=== PATIENT | female | born 1965 | race Caucasian/White ===

== ENCOUNTER → 2021-01-18 14:47 | Outpatient (CLI) | payer BC, SELFPAY ==
--- NOTE | ~2021-01-18 | MM_ITS ---
EXAMINATION: MM scrn arabella implant BI w leisa HISTORY: Screening mammogram TECHNIQUE: Craniocaudal and mediolateral oblique 3-D tomosynthesis images with implant displacement a nd synthetic 2-D images were generated. Craniocaudal and mediolateral oblique views of the breasts wi thout implant displacement were obtained using full field digital mammography. CAD analysis was submi tted and interpreted. COMPARISON: Comparison to multiple prior studies sequentially, with oldest reviewed study dated 02/03. BREAST PARENCHYMAL COMPOSITION: The breasts are heterogenously dense, which may obscure small masses. FINDINGS: There are bilateral silicone subpectoral implants. There is no evidence of suspicious mass, calcification, or architectural distortion to suggest malignancy in either breast. There has been no suspicious interval change. IMPRESSION: 1. No mammographic evidence of malignancy. 2. Recommend routine screening mammography in one year. BI-RADS Category 1: Negative Reviewed, dictated and finalized at location A.
== END ==
PROVIDERS: PCP Family Medicine; Visit Provider Family Medicine
DX: Z12.31 Encounter for screening mammogram for malignant neoplasm of breast (principal)
CPT/HCPCS: 77063; 77067

== ENCOUNTER 2021-01-19 14:30 | Outpatient (CLI) | payer BC, SELFPAY | END 2021-01-19 14:31 | disposition home or self-care (01) | LOC: ANHAUDIO 14:32 | PROVIDERS: PCP Family Medicine; Referring Provider Otolaryngology; Visit Provider Otolaryngology | DX: H93.11 Tinnitus, right ear (principal); H90.3 Sensorineural hearing loss, bilateral | CPT/HCPCS: 92557; 92567 ==

== ENCOUNTER 2021-03-15 01:37 | Day surgery (SDC) | payer BC, SELFPAY ==
[2021-03-03 14:44] VITALS: BMI 20.6
--- NOTE | 2021-03-14 12:05 | WPDANESEPPF ---
Anes - Initial Pre Proc Eval Procedure: Operation Date: 03/15/21 08:30 Proposed Procedures p Screening Colonoscopy - Jaime Medina MD Date/Time: 03/14/21 12:05 Surgeon: Jaime Medina MD Pre Op Diagnosis: neoplasm screening Patient Data Age: 56 Gender: F Height: 1.73 m Weight: 61.5 kg Allergies Allergy/AdvReac Type Severity Reaction Status Date / Time No Known Allergies Allergy Verified 03/03/21 15:27 Home Medications Medication Instructions Recorded Confirmed Type No Home Medications 03/03/21 03/15/21 History Patient hx anesthesia problems: none Family hx anesthesia problems: none PMFSH Past Medical History Medical History Closed fracture of heel bone 2014 Hx of abnormal cervical Pap smear Tobacco abuse Surgical History Surgical History History of augmentation mammoplasty 2013 Hx of section Family History Family History Father Heart disease Mother Heart disease Sibling Heart disease Other Family history of premature coronary heart disease Social History Social History Social History: Smoking packs per day: 1 Smoking cigarettes per day: 20.0 Years smoked: 37 Smoking pack-years: 37.00 Smoking status: Current every day smoker Tobacco type: cigarettes Second hand tobacco smoke exposure: Yes Alcohol intake: current Drinks per week: 2 Alcohol use details: Occasionally Substance use: never Substance use type: does not use Living arrangements: with family Gender identity (if verbalized by the patient): Female Sexual Orientation (if Verbalized by the Patient): Straight or Heterosexual Spiritual care concerns: No Anes - Eval Final PreProcedure Day of Procedure 03/14/21 12:05 Patient weight: normal Heart: regular rate and rhythm Lungs: clear to auscultation and normal air movement Airway: Mallampati scale class II Neurological: alert and oriented Last oral intake: >/= 8 hours ASA classification: III Emergent: no Anesthetic plan: proceed Anesthesia type and monitoring: general GIVS and standard monitoring Informed Consent: The patient's anesthetic plan and its attendant risks and benefits were discussed with the patient/family/POA. Questions were solicited and answers provided to the satisfaction of the patient/family/POA.
[2021-03-15 07:13] VITALS: BP 131/87; PULSE 74; RESP 18; TEMP 36.1; O2SAT 100
[2021-03-15] MEDS: LACTATED RINGERS 1,000 ML 150 ML IV CONT (07:32)
--- NOTE | 2021-03-15 08:28 | WPDGICN ---
Assessment and Plan Assessment and plan (1) Colon cancer screening: Code(s): Z12.11 - Encounter for screening for malignant neoplasm of colon Status: Acute Assessment and Plan: Patient presents for screening colonoscopy. This report follows separately. GI Consult Note Consult date/time: 03/15/21 08:28 HPI: Kathryn Mcclure is a 56 year old female Presents for screening colonoscopy. Patient's current weight appetite bowel movements are normal. Patient denies abdominal pain. Patient has had no bleeding. Family history is Noncontributory. Patient presents today for screening colonoscopy. Review of Systems Review of Systems: All systems reviewed & are unremarkable except as noted in HPI and below PMFSH Past Medical History Medical History Closed fracture of heel bone 2014 Hx of abnormal cervical Pap smear Tobacco abuse Surgical History Surgical History History of augmentation mammoplasty 2013 Hx of section Family History Family History Father Heart disease Mother Heart disease Sibling Heart disease Other Family history of premature coronary heart disease Social History Social History Social History: Smoking packs per day: 1 Smoking cigarettes per day: 20.0 Years smoked: 37 Smoking pack-years: 37.00 Smoking status: Current every day smoker Tobacco type: cigarettes Second hand tobacco smoke exposure: Yes Alcohol intake: current Drinks per week: 2 Alcohol use details: Occasionally Substance use: never Substance use type: does not use Living arrangements: with family Gender identity (if verbalized by the patient): Female Sexual Orientation (if Verbalized by the Patient): Straight or Heterosexual Spiritual care concerns: No Meds Home Medications and Allergies Home Medications Medication Instructions Recorded Confirmed Type No Home Medications 03/03/21 03/15/21 History Allergies Allergy/AdvReac Type Severity Reaction Status Date / Time No Known Allergies Allergy Verified 03/03/21 15:27 Vital Signs Vital Signs - 24 hr 03/15/21 07:13 Temperature 96.9 F L Pulse Rate 74 Respiratory Rate 18 Blood Pressure 131/87 Pulse Oximetry 100 Exam Narrative: Physical exam reveals patient to be alert. Vital signs are stable. HEENT exam is unremarkable. Patient is anicteric. Lungs are clear to auscultation and percussion. Heart is without murmur or extra sounds. Abdominal exam bowel sounds are present soft nontender with no organomegaly. Digital external rectal exam is normal.
[2021-03-15 09:13] VITALS: BP 119/81; PULSE 77; RESP 25; O2SAT 100
[2021-03-15 09:23] VITALS: BP 140/84; PULSE 68; RESP 21; O2SAT 100
[2021-03-15 09:33] VITALS: BP 137/84; PULSE 66; RESP 13; O2SAT 100
== END 2021-03-15 09:42 | disposition home or self-care (01) ==
PROVIDERS: PCP Family Medicine; Visit Provider Internal Medicine Gastroenterology
PROC: 0DJD8ZZ Inspection of Lower Intestinal Tract, Via Natural or Artificial Opening Endoscopic (ICD-10-PCS; CPT 45378; principal; 2021-03-15 08:30)
DX: Z12.11 Encounter for screening for malignant neoplasm of colon (principal); K63.5 Polyp of colon; D12.5 Benign neoplasm of sigmoid colon; F17.210 Nicotine dependence, cigarettes, uncomplicated
CPT/HCPCS: 45385; 88305; J2001; J2704; J7120

== ENCOUNTER → 2022-10-05 10:31 | Outpatient (CLI) | payer BC, SELFPAY ==
--- NOTE | ~2022-10-05 | CT_ITS ---
EXAMINATION: CT lung screening DATE: 10/05/2022 11:12 INDICATION: smoker TECHNIQUE: Computed tomography (CT) of the chest was performed without intravenous contrast. Addition al 3D reconstructions utilizing coronal maximum intensity projection (MIP) were performed. Automated exposure control and iterative reconstruction technique were employed. The dose-length product was 87 .52 mGy-cm. COMPARISON: None FINDINGS: Mild emphysema with mild biapical pleural-parenchymal scarring. No other suspicious pulmonary nodules , pulmonary edema, pleural effusion or pneumothorax. Heart size is normal. No pericardial effusion. T horacic aorta is normal in caliber. No pathologically enlarged thoracic lymphadenopathy. Mild to mode rate thoracic spondylosis. Bilateral breast implants. IMPRESSION: 1. Lung-RADS category 1: Negative. Continue annual screening with noncontrast low-dose chest CT in 12 months. Reviewed, dictated and finalized at location L. IMPRESSION: 1. Lung-RADS category 1: Negative. Continue annual screening with noncontrast l ow-dose chest CT in 12 months.
--- NOTE | ~2022-10-05 | US_ITS ---
Abdominal Sonogram: Real-time sonographic imaging of the abdomen was performed. Clinical History: Abdominal pain Findings: The liver appears normal with no evidence of mass lesion or bile duct dilatation. Main por shanna vein demonstrates normal direction of flow. The spleen is normal in size without evidence of foca l lesion. The gallbladder is well distended, and appears normal with no evidence of gallstone or wal l thickening. The common bile duct measures 3 mm. The visualized pancreas, aorta, and IVC are unrema rkable. The right kidney measures 11.2 cm in length and the left kidney measures 10.6 cm. There is no hydronephrosis or renal calculus. Impression: Unremarkable abdominal ultrasound. Reviewed, dictated and finalized at location . Impression: Unremarkable abdominal ultrasound.
--- NOTE | ~2022-10-05 | MR_ITS ---
MRI of the brain Clinical History: Headache, blindness Technique: Axial and sagittal T1-weighted images were acquired. These were followed by axial T2-weigh muriel, diffusion weighted, gradient, and FLAIR images. Following intravenous administration of 10 cc Mu ltiHance gadolinium, T1-weighted fat-sat imaging was performed in the axial and coronal planes. COMPARISON: 09/29/2012 Findings: No abnormal signal seen in the brain parenchyma. No acute infarct, intracranial hemorrhage, or mass lesion. Ventricles and subarachnoid spaces are unremarkable. Orbits are unremarkable. Paranasal sinuses and m astoid air cells are clear. Major intracranial flow voids appear intact. Sagittal midline structures are intact. No abnormal postcontrast enhancement identified. IMPRESSION: Unremarkable exam. Reviewed, dictated and finalized at location M. IMPRESSION: Unremarkable exam.
== END ==
PROVIDERS: PCP Family Medicine; Visit Provider Nurse Practitioner Gerontology
DX: Z12.2 Encounter for screening for malignant neoplasm of respiratory organs (principal); F17.210 Nicotine dependence, cigarettes, uncomplicated; R51.9 Headache, unspecified; H54.7 Unspecified visual loss; R10.9 Unspecified abdominal pain
CPT/HCPCS: 70553; 71271; 76700; A9577

== ENCOUNTER 2022-10-09 10:02 | Outpatient (CLI) | payer BC, SELFPAY ==
[2022-10-12 15:35] LABS: Vitamin D 1,25 (OH)2 Total 53 pg/mL (18-72); Vitamin D2 1,25 (OH)2 <8 pg/mL; Vitamin D3 1,25 (OH)2 53 pg/mL
== END 2022-10-09 10:03 | disposition home or self-care (01) ==
LOC: ANHLAB 10:04
PROVIDERS: PCP Family Medicine; Visit Provider Nurse Practitioner Gerontology
DX: E67.8 Other specified hyperalimentation (principal)
CPT/HCPCS: 36415; 82652

== ENCOUNTER 2022-10-16 01:09 | Day surgery (SDC) | payer BC, SELFPAY ==
[2022-10-03 14:11] VITALS: BMI 20.1
[2022-10-16 09:41] VITALS: BP 128/77; PULSE 69; RESP 18; TEMP 36.8; O2SAT 100
[2022-10-16] MEDS: LACTATED RINGERS 1,000 ML 150 ML IV CONT (09:48)
--- NOTE | 2022-10-16 10:13 | PM.HPGS ---
History of Present Illness History of Present Illness Consent: Risks, benefits, and alternatives have been discussed and questions answered. Patient agrees to proceed with procedure. Chief complaint: Epigastric pain Narrative: Kathryn Mcclure is a 57 year old female Presents for EGD. Patient reports for the last 25-30 years she has had epigastric pain. This is associated with nausea regurgitation. It occurs perhaps 2-3 weeks every 3 months. She no initially was prescribed omeprazole some years ago but discontinued this and only took it on a p.r.n. basis. Over the last 1 week she has taken this regularly and states this helps alleviate her discomfort. Patient denies any bleeding. She has had no weight loss. Patient referred today for EGD to further evaluate. Patient does have a past medical history of colon polyp removed from the colon in 2020. Follow-up colonoscopy has been advised at 5 year intervals. Review of Systems Review of Systems: Review of systems noncontributory. [facility] Past Medical History Medical History Closed fracture of heel bone 2014 Hx of abnormal cervical Pap smear Tobacco abuse Surgical History Surgical History History of augmentation mammoplasty 2014 Hx of section Family History Family History Father Heart disease Mother Heart disease Sibling Heart disease Other Family history of premature coronary heart disease Social History Social History Social History: Smoking packs per day: 1 Smoking cigarettes per day: 20.0 Years smoked: 37 Smoking pack-years: 37.00 Smoking status: Current every day smoker Tobacco type: cigarettes Second hand tobacco smoke exposure: Yes Alcohol intake: current Drinks per week: 1 Alcohol use details: Occasionally Substance use: never Substance use type: does not use Living arrangements: with family Occupation/Education: unemployed Gender identity (if verbalized by the patient): Female Sexual Orientation (if Verbalized by the Patient): Straight or Heterosexual Spiritual care concerns: No Meds Home Medications and Allergies Home Medications Medication Instructions Recorded Confirmed Type omeprazole 40 mg capsule,delayed 40 mg PO DAILY #90 caps 10/09/22 10/16/22 Rx release Allergies Allergy/AdvReac Type Severity Reaction Status Date / Time No Known Allergies Allergy Verified 10/16/22 09:39 Vital Signs Vital Signs - 24 hr 10/16/22 09:41 Temperature 98.3 F Pulse Rate 69 Respiratory Rate 18 Blood Pressure 128/77 Pulse Oximetry 100 Oxygen Delivery Room Air Exam Narrative: Physical exam reveals patient to be alert. Vital signs stable. HEENT exam is unremarkable. Patient is anicteric. Lungs are clear to auscultation and percussion. Heart is without murmur or extra sounds. Abdomen bowel sounds are present soft nontender with no hepatosplenomegaly. Digital external rectal exam is normal. Assessment and Plan Assessment and plan (1) Midepigastric pain: Code(s): R10.13 - Epigastric pain Status: Acute Assessment and Plan: Patient with intermittent epigastric pain. Patient referred for EGD. Some improvement with omeprazole suggest this may be dyspepsia. Further recommendations will be given after endoscopy. Currently seems prudent to maintain patient on pantoprazole or similar medication given the ongoing discomfort.
--- NOTE | 2022-10-16 10:17 | P.PNAN_ITS ---
Anes - Initial Pre Proc Eval Procedure: Operation Date: 10/16/22 11:00 Proposed Procedures p Esophagogastroduodenoscopy - Jaime Medina MD Date/Time: 10/16/22 10:17 Surgeon: Jaime Medina MD Pre Op Diagnosis: Epigastric pain Patient Data Age: 57 Gender: F Height: 1.73 m Weight: 57.9 kg Last Vital Signs Temp 36.8 C 10/16/22 09:41 Pulse 69 10/16/22 09:41 Resp 18 10/16/22 09:41 BP 128/77 10/16/22 09:41 Pulse Ox 100 10/16/22 09:41 O2 Del Method Room Air 10/16/22 09:41 Allergies Allergy/AdvReac Type Severity Reaction Status Date / Time No Known Allergies Allergy Verified 10/16/22 09:39 Home Medications Medication Instructions Recorded Confirmed Type omeprazole 40 mg capsule,delayed 40 mg PO DAILY #90 caps 10/09/22 10/16/22 Rx release Patient hx anesthesia problems: none Family hx anesthesia problems: none Results Review: All pre-operative results and documents have been reviewed as part of the pre- operative evaluation. [facility] Past Medical History Medical History Closed fracture of heel bone 2014 Hx of abnormal cervical Pap smear Tobacco abuse Surgical History Surgical History History of augmentation mammoplasty 2014 Hx of section Family History Family History Father Heart disease Mother Heart disease Sibling Heart disease Other Family history of premature coronary heart disease Social History Social History Social History: Smoking packs per day: 1 Smoking cigarettes per day: 20.0 Years smoked: 37 Smoking pack-years: 37.00 Smoking status: Current every day smoker Tobacco type: cigarettes Second hand tobacco smoke exposure: Yes Alcohol intake: current Drinks per week: 1 Alcohol use details: Occasionally Substance use: never Substance use type: does not use Living arrangements: with family Occupation/Education: unemployed Gender identity (if verbalized by the patient): Female Sexual Orientation (if Verbalized by the Patient): Straight or Heterosexual Spiritual care concerns: No Anes - Eval Final PreProcedure Day of Procedure 10/16/22 10:17 Patient weight: normal Heart: regular rate and rhythm Lungs: clear to auscultation and normal air movement Airway: Mallampati scale class II Neurological: alert and oriented Last oral intake: >/= 8 hours ASA classification: II Emergent: no Anesthetic plan: proceed Anesthesia type and monitoring: general GIVS and standard monitoring Results Review: All pre-operative results and documents have been reviewed as part of the pre- operative evaluation. Informed Consent: The patient's anesthetic plan and its attendant risks and benefits were discussed with the patient/family/POA. Questions were solicited and answers provided to the satisfaction of the patient/family/POA.
[2022-10-16] MEDS: BENZOCAINE (*SP) 60 ML SPRAY CAN (HURRICAINE) 1 SPRAY MUCOUS MEM (10:49)
[2022-10-16 10:58] VITALS: BP 117/64; PULSE 75; RESP 18; O2SAT 100
[2022-10-16 11:08] VITALS: BP 106/70; PULSE 65; RESP 20; O2SAT 100
[2022-10-16 11:18] VITALS: BP 96/59; PULSE 66; RESP 20; O2SAT 100
--- NOTE | 2022-10-17 07:58 | SUR.PHASEII ---
At 11:04am on October 16, 2022 Dr. Medina was notified and aware of the positive H.pylori, see orders.
== END 2022-10-16 11:40 | disposition home or self-care (01) ==
PROVIDERS: PCP Family Medicine; Visit Provider Internal Medicine Gastroenterology
PROC: 0DJ08ZZ Inspection of Upper Intestinal Tract, Via Natural or Artificial Opening Endoscopic (ICD-10-PCS; CPT 43235; principal; 2022-10-16 11:00)
DX: K26.3 Acute duodenal ulcer without hemorrhage or perforation (principal); F17.210 Nicotine dependence, cigarettes, uncomplicated
CPT/HCPCS: 43239; 87081; J2704; J7120

== ENCOUNTER → 2022-12-25 11:17 | Outpatient (CLI) | payer BC, SELFPAY ==
--- NOTE | ~2022-12-25 | MM_ITS ---
EXAMINATION: MM scrn arabella implant BI w leisa HISTORY: Screening mammogram TECHNIQUE: Craniocaudal and mediolateral oblique 3-D tomosynthesis images with implant displacement a nd synthetic 2-D images were generated. Craniocaudal and mediolateral oblique views of the breasts wi thout implant displacement were obtained using full field digital mammography. CAD analysis was submi tted and interpreted. COMPARISON: Comparison to multiple prior studies sequentially, with oldest reviewed study dated 08/17. BREAST PARENCHYMAL COMPOSITION: The breasts are extremely dense, which lowers the sensitivity of mamm ography FINDINGS: There is no evidence of suspicious mass, calcification, or architectural distortion to sugg est malignancy in either breast. There has been no suspicious interval change. IMPRESSION: 1. No mammographic evidence of malignancy. 2. Recommend routine screening mammography in one year. BI-RADS Category 1: Negative Reviewed, dictated and finalized at location A.
== END ==
PROVIDERS: PCP Family Medicine; Visit Provider Nurse Practitioner Gerontology
DX: Z12.31 Encounter for screening mammogram for malignant neoplasm of breast (principal)
CPT/HCPCS: 77063; 77067

== ENCOUNTER 2023-10-12 10:06 | Outpatient (CLI) | payer BC, SELFPAY ==
--- NOTE | ~2023-10-12 | CT_ITS ---
CT Scan of the Chest without Contrast: Clinical Indication: Lung cancer screening, personal history of nicotine dependence Technique: Contiguous sections were acquired throughout the chest without intravenous contrast. Dose reduction technique was used on this scan by utilizing automated exposure control and iterative recon struction technique. The dose-length product (DLP) was 84.19 mGy-cm. COMPARISON: 10/05/2022 Findings: There is no evidence of any significant mediastinal, hilar or axillary lymphadenopathy. The mediastin al soft tissues appear normal. There is no evidence of pleural or pericardial effusion. Stable biapical scarring noted. No pulmonary nodule seen. Images through the upper abdomen reveal no abnormalities. Impression: Lung RADS 1: Negative. 12 month follow-up screening CT advised. Reviewed, dictated and finalized at [facility]. Impression: Lung RADS 1: Negative. 12 month follow-up screening CT advised.
== END 2023-10-12 10:07 ==
LOC: GOSHIMG 10:06
PROVIDERS: PCP Family Medicine; Visit Provider Physician Assistant
DX: Z12.2 Encounter for screening for malignant neoplasm of respiratory organs (principal); F17.210 Nicotine dependence, cigarettes, uncomplicated
CPT/HCPCS: 71271

== ENCOUNTER 2023-12-31 10:50 | Outpatient (CLI) | payer OTHER, BC, SELFPAY ==
--- NOTE | ~2023-12-31 | DEXA_ITS ---
Bone Density Report Name: BENIGNO STOVER Age: 58 Sex: Female Ethnicity: White Date of : 1965 Indication: postmenopausal; screening for osteoporosis; height loss; prior fracture; Referring Provider: ARIEL IGLESIAS Study: Bone densitometry was performed. Exam Date: December 31, 2023 Accession number: [id number] Bone Density: Region BMD T-score Z-score Classification AP Spine (L1-L4) 0.826 -2.0 -0.7 Osteopenia Femoral Neck (Left) 0.623 -2.0 -0.8 Osteopenia Total Hip (Left) 0.780 -1.3 -0.5 Osteopenia Femoral Neck (Right) 0.616 -2.1 -0.9 Osteopenia Total Hip (Right) 0.771 -1.4 -0.6 Osteopenia Total Hip Mean 0.776 -1.4 -0.6 Osteopenia World Health Organization criteria for BMD impression classify patients as: Normal (T-score at or above -1.0), Osteopenia (T-score between -1.0 and -2.5), or Osteoporosis (T-score at or below -2.5). 10-year Fracture Risk(1): Major Osteoporotic Fracture 15% Hip Fracture 3.4% Reported Risk Factors: [place] (), Neck BMD=0.616, BMI=21.1, previous fracture, smoking (1) FRAX(R) Version 3.08. Fracture probability calculated for an untreated patient. Fracture probability may be lower if the patient has received treatment. Clinical Information Provided by Patient: Has had a low trauma fracture Smokes Patient maximum height was 67.7 Menopause Age: 39 No regular weight bearing exercise Drinks caffeinated beverages Onset of menses at age 15 Number of children 2 Impression: The patient has low bone mass, based on the Right Femoral Neck T-score. The patient has an estimated ten-year risk of hip fracture of 3.4% and an estimated ten-year risk of major fracture of 15%, based on the WHO FRAX algorithm. The patient has risk factors, including: smoking, previous fracture. Discussion: BONE DENSITY IS LOW AT ONE OR MORE SKELETAL SITES. THE PATIENT'S BMD AND CLINICAL RISK FACTORS CONTRIBUTE TO THIS PATIENT'S INCREASED RISK OF FRACTURE. This patient's lowest T-score is low at one or more skeletal sites. It meets the World Health Organization's (WHO) criteria for ?low bone mass? (T-score between -1.0 and -2.5). The patient's 10-year risk of hip fracture as calculated by FRAX exceeds the threshold where pharmacological therapy is recommended by the National Osteoporosis Foundation (NOF). However, all treatment decisions require clinical judgment and consideration of individual patient factors, including patient preferences, comorbidities, previous drug use, risk factors not captured in the FRAX model (e.g., frailty, falls, vitamin D deficiency, increased bone turnover, interval significant decline in bone density) and possible under or overestimation of fracture risk by FRAX. The patient should follow a healthful lifestyle (good nutrition with adequate calcium and vitami
--- NOTE | ~2023-12-31 | MM_ITS ---
EXAMINATION: MM scrn arabella implant BI w leisa HISTORY: Screening mammogram TECHNIQUE: Craniocaudal and mediolateral oblique 3-D tomosynthesis images with implant displacement a nd synthetic 2-D images were generated. Craniocaudal and mediolateral oblique views of the breasts wi thout implant displacement were obtained using full field digital mammography. CAD analysis was submi tted and interpreted. COMPARISON: Comparison to multiple prior studies sequentially, with oldest reviewed study dated 01/2014. BREAST PARENCHYMAL COMPOSITION: Dense: The breasts are extremely dense, which lowers the sensitivity of mammography. FINDINGS: There is no evidence of suspicious mass, calcification, or architectural distortion to sugg est malignancy in either breast. There has been no suspicious interval change. IMPRESSION: 1. No mammographic evidence of malignancy. 2. Recommend routine screening mammography in one year. BI-RADS Category 1: Negative Reviewed, dictated and finalized at location B.
== END 2023-12-31 10:51 ==
PROVIDERS: PCP Obstetrics & Gynecology Gynecology; Visit Provider Obstetrics & Gynecology Gynecology
DX: Z12.31 Encounter for screening mammogram for malignant neoplasm of breast (principal); Z78.0 Asymptomatic menopausal state; M85.88 Other specified disorders of bone density and structure, other site; M85.852 Other specified disorders of bone density and structure, left thigh; M85.851 Other specified disorders of bone density and structure, right thigh
CPT/HCPCS: 77063; 77067; 77080

== ENCOUNTER 2024-01-09 09:11 | Outpatient (CLI) | payer BC, SELFPAY ==
--- NOTE | ~2024-01-09 | XR_ITS ---
EXAMINATION: XR ribs LT 2V w CXR 2V DATE: 01/09/2024 09:52 INDICATION: Left rib injury. TECHNIQUE: Frontal and lateral views of the chest and 2 views on 3 radiographs of the left ribs were obtained. COMPARISON: Chest 2 views 10/12/2012 FINDINGS: CHEST TWO VIEWS: There is mild scarring at the lung apices. No pleural effusion or pneumothorax. The heart size is normal. Breast implants are noted. LEFT RIBS: There is no rib fracture. IMPRESSION: 1. No rib fracture. 2. Stable scarring at the lung apices. Reviewed, dictated and finalized at location A.
== END 2024-01-09 09:12 ==
PROVIDERS: PCP Physician Assistant; Visit Provider Physician Assistant
DX: R07.81 Pleurodynia (principal); S29.9XXA Unspecified injury of thorax, initial encounter; X58.XXXA Exposure to other specified factors, initial encounter
CPT/HCPCS: 71046; 71100

== ENCOUNTER 2025-01-02 10:48 | Outpatient (CLI) | payer OTHER, SELFPAY ==
--- NOTE | ~2025-01-02 | MM_ITS ---
EXAMINATION: MM scrn arabella implant BI w leisa HISTORY: Screening mammogram TECHNIQUE: Craniocaudal and mediolateral oblique 3-D tomosynthesis images with implant displacement a nd synthetic 2-D images were generated. Craniocaudal and mediolateral oblique views of the breasts wi thout implant displacement were obtained using full field digital mammography. CAD analysis was submi tted and interpreted. COMPARISON: Comparison to multiple prior studies sequentially, with oldest reviewed study dated 08/17. BREAST PARENCHYMAL COMPOSITION: Dense: The breasts are extremely dense, which lowers the sensitivity of mammography. FINDINGS: There is no evidence of suspicious mass, calcification, or architectural distortion to sugg est malignancy in either breast. There has been no suspicious interval change. IMPRESSION: 1. No mammographic evidence of malignancy. 2. Recommend routine screening mammography in one year. BI-RADS Category 1: Negative Reviewed, dictated and finalized at location B.
== END 2025-01-02 10:49 | disposition home or self-care (01) ==
PROVIDERS: PCP Physician Assistant; Visit Provider Obstetrics & Gynecology Gynecology
DX: Z12.31 Encounter for screening mammogram for malignant neoplasm of breast (principal)
CPT/HCPCS: 77063; 77067